=== PATIENT | male | born 1980 | race Caucasian/White ===

== ENCOUNTER 2017-11-28 17:02 | Emergency (ER) | payer MEDICARE | END 2017-11-28 18:43 | disposition home or self-care (01) | LOC: D.ER 17:02 → EDBD 17:02 → D.ER 18:43 | DX: M54.2 Cervicalgia (principal); R51 Headache; F17.200 Nicotine dependence, unspecified, uncomplicated ==

== ENCOUNTER 2019-05-21 02:37 | Emergency (ER) | payer MEDICARE ==
[~2019-05-21] VITALS: Ht 182.9 cm; Wt 104.5 kg
[2019-05-21 02:41] VITALS: Ht 182.9 cm; Wt 104.5 kg
[2019-05-21] MEDS ORDERED: ZOVIRAX200 MG (02:43)
[2019-05-21] MEDS ORDERED: SUMATRIPTAN SUC25 MG PO (02:43)
[2019-05-21] MEDS ORDERED: PEPCID AC20 MG PO (03:37)
[2019-05-21] MEDS ORDERED: PREDNISONE20 MG PO (03:37)
[2019-05-21 04:02] VITALS: BP 144/88
== END 2019-05-21 04:03 | disposition home or self-care (01) ==
LOC: D.ER 02:37
DX: L25.8 Unspecified contact dermatitis due to other agents (principal); T37.5X5A Adverse effect of antiviral drugs, initial encounter

== ENCOUNTER 2019-07-10 01:21 | Emergency (ER) | payer MEDICARE ==
[~2019-07-10] VITALS: Ht 182.9 cm; Wt 102.3 kg
[~2019-07-10 01:21] MED LIST: PEPCID AC20 MG PO; PREDNISONE20 MG PO; SUMATRIPTAN SUC25 MG PO; ZOVIRAX200 MG
[2019-07-10 01:29] VITALS: Ht 182.9 cm; Wt 102.3 kg
[2019-07-10 03:06] VITALS: BP 132/75
== END 2019-07-10 03:07 | disposition home or self-care (01) ==
LOC: D.ER 01:21
DX: S63.501A Unspecified sprain of right wrist, initial encounter (principal); W19.XXXA Unspecified fall, initial encounter; Y93.9 Activity, unspecified; Y92.9 Unspecified place or not applicable; Z98.890 Other specified postprocedural states